=== PATIENT | male | born 1970 | race Caucasian/White ===

== ENCOUNTER 2016-10-07 19:21 | Emergency (ER) | payer OTHER ==
[~2016-10-07] VITALS: Ht 175.3 cm; Wt 81.0 kg
[2016-10-07 19:33] VITALS: Ht 175.3 cm; Wt 81.0 kg
--- NOTE | 2016-10-07 21:41 | ERD ---
ER Documentation Chief Complaint Date/Time DATE: 10/07/16 TIME: 21:37 Chief Complaint Pt c/o cough for 8 months and r shoulder, calf and ear pain HPI This is a 45-year-old male who presents to the emergency department with numerous complaints including cough, right shoulder pain, right calf pain, right ear pain. Patient states his cough started 8 months ago. Patient reports a dry cough. Patient reports taking numerous courses of antibiotics and cough syrup with no alleviation of symptoms. Patient does report clearing his throat often. Patient does report eating spicy foods. Patient denies any chest x-rays in the past. Patient denies any fevers or chills, nausea or vomiting. Patient states his right shoulder pain started a week and a half ago. Patient states the pain originates in the right shoulder and radiates into his neck. Patient denies any falls or trauma. Patient has normal range of motion. Patient also reports right ear pain. Patient denies any active drainage or discharge. Patient denies any rhinorrhea, sore throat. Patient also reporting right calf pain and swelling. Patient states the pain started 1 week ago. Patient denies any recent travel or history of surgery. Patient reports family history of DVTs and is concerned he may have one at this time. Patient requesting DVT study. ROS All systems reviewed and are negative except as per history of present illness. Medications Home Meds Active Scripts Famotidine* (Pepcid*) 20 Mg Tablet, 20 MG PO BID for 30 Days, TAB Prov:RANDY SALDANA PA-C 10/07/16 Ibuprofen* (Motrin*) 600 Mg Tab, 600 MG PO Q6, #30 TAB Prov:RANDY SALDANA PA-C 10/07/16 PMhx/Soc Medical and Surgical Hx: pt denies Medical Hx, pt denies Surgical Hx History of Surgery: No Anesthesia Reaction: No Hx Neurological Disorder: No Hx Respiratory Disorders: No Hx Cardiac Disorders: No Hx Psychiatric Problems: No Hx Miscellaneous Medical Probl: No Hx Alcohol Use: No Hx Substance Use: No Hx Tobacco Use: No Smoking Status: Never smoker FmHx Family History: No diabetes Physical Exam Vitals Vital Signs Date Time Temp Pulse Resp B/P Pulse Ox O2 Delivery O2 Flow Rate FiO2 10/07/16 23:55 98.3 63 17 131/80 96 Room Air 10/07/16 19:33 98.1 79 20 148/92 97 Physical Exam GENERAL: Well-developed, well-nourished male. Appears in no acute distress. HEAD: Normocephalic, atraumatic. No deformities or ecchymosis. EYE: Pupils equal, round, and reactive to light. EOMs intact. No conjunctival erythema. No eye discharge. ENT: External ear without any masses or tenderness. Auditory canals clear bilaterally. TM visualized bilaterally, non-erythematous, non-bulging. Nasal mucosa pink with no discharge. Oropharynx is pink without any tonsillar erythema or exudates. No uvula deviation. No kissing tonsils. Clearing throat throughout examination. NECK: Supple. No meningismus. Normal ROM of the neck. Tender to palpation of the right trapezius muscle. No neck stiffness noted. LUNG: Clear to auscultation bilaterally. No rhonchi, wheezing, rales or coarse breath sounds. HEART: Regular rate and rhythm. No murmurs, rubs or gallops. BACK: No midline tenderness. EXTREMITIES: Equal pulses bilaterally. No peripheral clubbing, cyanosis or edema. No unilateral leg swelling. NEUROLOGIC: Alert and oriented to person, place and time. Moving all four extremities. 5/5 strength in all extremities. Normal speech. Steady gait. SKIN: Normal color. Warm and dry. No rashes or lesions. RIGHT SHOULDER: No deformity, erythema, ecchymosis or swelling. Skin intact. No bursal swelling. Full ROM. Tender to palpation of the lateral aspect of the shoulder. Nontender palpation of the humerus, clavicle.. Sensation intact to light touch. Neurovascularly intact. (Able to give thumbs up, make an ok sign, cross digits 2 and 3, thumb to pinky opposition. 2+ RP.) No snuffbox tenderness. RIGHT CALF: No obvious deformity. Slight swelling and erythema on the medial aspect noted. Nontender to palpation of the anterior knee. No valgus/varus instability. Sensation intact to light touch. Neurovascularly intact. (Able to plantarflex, dorsiflex, saulo foot, invert foot, raise big toe.) 2+ DP and DT pulses. Procedures/MDM ED COURSE: The patient was stable throughout ED course. I kept the patient and/or family informed of laboratory and diagnostic imaging results throughout the ED course. DIAGNOSTIC IMAGING: Read by radiologist. Patient: KASIA BRICEÑO : 1970 Age: 45 Sex: M MR #: [id number] DOS: 10/07/162131 Ordering MD: RANDY SALDANA PA-C Location: [facility] Room/Bed: PROCEDURE: XR Chest. CLINICAL INDICATION: Cough. TECHNIQUE: Single frontal chest x-ray. COMPARISON: None available. FINDINGS: The cardiomediastinal silhouette is unremarkable. No pneumothorax, pleural effusion or consolidation is seen. No acute osseous abnormality is noted. IMPRESSION: 1. No acute cardiopulmonary abnormality. RPTAT: HFN .Jt Jiang MD, MD Date Time Electronically viewed and signed by .Jt Jiang MD, MD on 10/07/2016 22: 51 .N/ CC: RANDY SALDANA PA-C DIAGNOSTIC IMAGING REPORT Patient: KASIA BRICEÑO : 1970 Age: 45 Sex: M MR #: [id number] DOS: 10/07/162131 Ordering MD: RANDY SALDANA PA-C Location: [facility] Room/Bed: PROCEDURE: US Lower extremity Venous. CLINICAL INDICATION: Right leg edema , pain TECHNIQUE: Multiple sonographic images of the right lower extremity deep venous system was obtained utilizing grayscale, color-flow, compressive sonography and doppler imaging with augmentation. The images were reviewed on a PACS workstation. COMPARISON: None. FINDINGS: There is normal compressibility and flow within the right common femoral, femoral, posterior tibial, peroneal and popliteal veins. RPTAT: AA IMPRESSION: No sonographic evidence for deep venous thrombosis. .Rudy Johnston MD, MD Date Time Electronically viewed and signed by .Rudy Johnston MD, MD on 10/07/2016 21: 55 .S/ CC: RANDY SALDANA PA-C MEDICAL DECISION MAKING: Patient is 45-year-old male who presents with numerous concerns including a cough, right shoulder pain, right calf pain and right ear pain.. Vital signs were reviewed. Patient is afebrile. Patient was not hypoxic. Patient was hemodynamically stable. ENT exam was normal. Lung exam is normal. Right shoulder exam was unremarkable. X-ray imaging of the chest was negative. Doppler ultrasound of the right lower extremity was negative for DVT. At this time, patient's presentation is most consistent with chronic cough, right shoulder pain, right calf pain and right ear pain. Low suspicion for pneumonia , acute bronchitis, pneumothorax, pleural effusion. Patient did report a dry cough and does report often clearing his throat, I will give the patient a trial of Pepcid as patient may have symptoms of GERD. Low suspicion for shoulder fracture or dislocation given the patient has normal range of motion of his shoulder. Low suspicion for otitis media, otitis externa, mastoiditis, TMJ dysfunction. Patient was advised to follow-up with his primary care physician for further workup of his shoulder and calf pain. Low suspicion for humerus fracture, shoulder dislocation, tibia fracture, fibula fracture. Patient may need to follow-up with an recruiter specialist. Unable to rule out any ligament or tendon injuries at this time. Patient provided with referral information. PRESCRIPTION: Ibuprofen Pepcid DISCHARGE: At this time, patient is stable for discharge and outpatient management. I have instructed the patient to follow-up with his/her primary care physician in 1-2 days. I have discussed with the patient the possibility of needing to see a specialist for further workup and imaging studies if symptoms persist. I have instructed the patient to promptly return to the ER for any new or worsening symptoms including increased pain, fever, nausea, vomiting, weakness or LOC. The patient and/or family expressed understanding of and agreement with this plan. All questions were answered. Home care instructions were provided. Departure Diagnosis: Primary Impression: Multiple complaints Additional Impressions: Shoulder pain, right Chronicity: acute Qualified Code: M25.511 - Acute pain of right shoulder Calf pain Laterality: right Qualified Code: M79.661 - Right calf pain Ear pain, right Condition: Stable Additional Instructions: Call your primary care doctor SHANDAORROW for an appointment during the next 1-2 days.See the doctor sooner or return here if your condition worsens before your appointment time. RANDY SALDANA PA-C Oct 07, 2016 21:40
--- NOTE | 2016-10-07 21:56 | RADRPT ---
PROCEDURE: US Lower extremity Venous. CLINICAL INDICATION: Right leg edema , pain TECHNIQUE: Multiple sonographic images of the right lower extremity deep venous system was obtaine d utilizing grayscale, color-flow, compressive sonography and doppler imaging with augmentation. Th e images were reviewed on a PACS workstation. COMPARISON: None. FINDINGS: There is normal compressibility and flow within the right common femoral, femoral, posterior tibial, peroneal and popliteal veins. RPTAT: AA IMPRESSION: No sonographic evidence for deep venous thrombosis. .Rudy Johnston MD, MD Date Time Electronically viewed and signed by .Rudy Johnston MD, on 10/07/2016 21:55 .S/
--- NOTE | 2016-10-07 22:51 | RADRPT ---
PROCEDURE: XR Chest. CLINICAL INDICATION: Cough. TECHNIQUE: Single frontal chest x-ray. COMPARISON: None available. FINDINGS: The cardiomediastinal silhouette is unremarkable. No pneumothorax, pleural effusion or consolidation is seen. No acute osseous abnormality is noted. IMPRESSION: 1. No acute cardiopulmonary abnormality. RPTAT: HFN .Jt Jiang MD, MD Date Time Electronically viewed and signed by .Jt Jiang MD, on 10/07/2016 22:51 .N/
[2016-10-07] MEDS ORDERED: IBUP-1542 PO (23:42)
[2016-10-07] MEDS ORDERED: FAMO-18 PO (23:42)
[2016-10-07 23:55] VITALS: BP 131/80; PULSE 63; RESP 17; TEMP 98.3
== END 2016-10-07 23:55 | disposition home or self-care (01) ==
LOC: FTE 19:21
DX: M25.511 Pain in right shoulder (principal); M79.661 Pain in right lower leg; H92.02 Otalgia, left ear
CPT/HCPCS: 71010; 93971